=== PATIENT | female | born 1940 | race Caucasian/White ===

== ENCOUNTER 2022-04-19 11:18 | Day surgery (SDC) | payer MEDICARE, BC, SELFPAY ==
--- NOTE | 2022-04-19 11:47 | SUR.PREOP ---
Patient provided home covid negative results to RN.
[2022-04-19] MEDS: TETRACAINE 0.5% OPHTH 1 DROP EYE-RIGHT (12:04)
[2022-04-19 12:07] VITALS: BMI 28.1
[2022-04-19] MEDS: KETOROLAC OPHTH 0.5% 1 DROP EYE-RIGHT ×3 (12:10→12:29)
[2022-04-19 12:11] VITALS: BP 131/61; PULSE 60; RESP 16; TEMP 37.2; O2SAT 97
[2022-04-19] MEDS: SODIUM CHLORIDE 0.9 % (FLUSH) 10 ML SYRINGE IVF (12:21)
[2022-04-19] MEDS: BRIMONIDINE TARTRATE 0.2% OPHTH 1 DROP EYE-RIGHT (12:43)
--- NOTE | 2022-04-19 13:18 | W.ANESCHARGE ---
Anesthesia Charges Start Date/Time Anesthesia Start Date: 04/19/22 Anesthesia Start Time: 13:23 Stop Date/Time Anesthesia Stop Date: 04/19/22 Anesthesia Stop Time: 13:50 Summary Emergency: No Extremes of Age: Over 70-CPT 81015
--- NOTE | 2022-04-19 13:24 | W.ANESCHARGE ---
Anesthesia Charges Start Date/Time Anesthesia Start Date: 04/19/22 Anesthesia Start Time: 13:23 Stop Date/Time Anesthesia Stop Date: 04/19/22 Anesthesia Stop Time: 13:50 Summary Emergency: No Extremes of Age: Over 70-CPT 95919
[2022-04-19] MEDS: TETRACAINE 0.5% OPHTH 2 DROP EYE-RIGHT (13:26)
[2022-04-19] MEDS: BALANCED SALT IRRIG SOLN 15 ML EYE-RIGHT (13:30)
--- NOTE | 2022-04-19 13:46 | PM.PROC ---
Procedure Note Date Seen: 04/19/22 Date of procedure: 04/19/22 Will [facility] bill your pro fee for this procedure?: No Procedure: NAME OF PROCEDURE Darek phacoemulsification, right eye, with posterior chamber lens implant.complex PREOPERATIVE DIAGNOSIS Nuclear sclerotic cortical combined cataract, right eye. miosis POSTOPERATIVE DIAGNOSIS Nuclear sclerotic cortical combined cataract, right eye. miosis INDICATIONS FOR PROCEDURE The patient has noted that his vision in the right eye is failing. Severity 7 next/10. Unable to correct with glasses/contact lenses; has disabling night glare when driving, difficulty reading. Because of this, the patient elected to proceed with surgical repair. I have explained the risks, benefits, alternative treatments to the patient including possible loss of the eye under correction, over correction, need for more surgery. The patient understands, accepts, and elects to proceed with surgical repair. PROCEDURE The right eye was dilated with a combination 1% Mydriacyl, 2.5% phenylephrine with topical Ocufen and Vigamox applied to the corneal surface. The patient was brought to the main operating room where under IV sedation, after pausing to identify the correct patient, correct intraoperative lens, power . The right eye was prepped and draped in usual sterile fashion for intraocular surgery. A lid speculum was placed and a paracentesis created at 12 o'clock. The chamber was filled with local, OVD and entered temporally with a keratome. A malyugan ring ws placed due to a 3.0 mmm pupill.A continuous tear capsulotomy was performed. The nucleus was hydrodissected and emulsified with local anesthetic and emulsified in a chop technique in the capsular bag. Residual cortex was cleaned. The capsule was clear. At this point, diBOO 24.5 diopter posterior chamber lens implant was injected into the capsular bag and was well centered. The ring was removed Residual OVD was cleaned from behind the implant from the capsular bag. The incision hydrated and noted to be leak free. Topical Alphagan, pilocarpine, and Vigamox were applied to the corneal surface and the patient returned to recovery in good condition having tolerated the procedure well. CONDITION ON DISCHARGE Satisfactory. Surgeon: Major Kyle MD
[2022-04-19 13:50] VITALS: BP 122/60; PULSE 56; RESP 16; TEMP 36.7; O2SAT 94
== END 2022-04-19 14:16 | disposition home or self-care (01) ==
PROVIDERS: PCP Family Medicine; Visit Provider Ophthalmology
PROC: (CPT 66982; principal; 2022-04-19 13:00)
DX: H25.811 Combined forms of age-related cataract, right eye (principal); H57.03 Miosis
CPT/HCPCS: 66982; 00142; 99100; A9270; J2250; J2405; J3010; S0020; V2632

== ENCOUNTER 2022-07-24 08:49 | Outpatient (CLI) | payer MEDICARE, BC, SELFPAY ==
--- NOTE | 2022-07-24 09:00 | CRLHL7_ITS ---
For Patients: As a result of the 21st Century Cures Act, medical imaging exams and procedure reports are released immediately into your electronic medical record. You may view this report before your referring provider. If you have questions, please contact your health care provider. Indication: RETROPERITONEAL LYMPHADENOPATHY Technique: Postcontrast CT chest, abdomen and pelvis. 76 cc Isovue 370 intravenous contrast. Please note that all CT scans at this facility use dose modulation, iterative reconstruction, and/or weight-based dosing when appropriate to reduce radiation dose to as low as reasonably achievable. Comparison: None, no priors at [facility] Findings: In the chest, biapical pleural parenchymal scarring noted. Nodule within the periphery of the right lung noted laterally measuring 3.7 millimeters, 3/50. Linear scarring within the right middle lobe. Thoracic inlet unremarkable. No mediastinal, hilar or axillary adenopathy. Chronic appearing reticulonodular densities laterally within the right lower lobe. No pleural effusion. Small nodular density within the medial right lower lobe measuring 3.4 millimeters, 3/72. Additional small nodular density within the left lower lobe at the CPA measuring 3 millimeters, 3/81. Small Bochdalek`s hernia on the left incidentally noted. [place] nodular density left upper lobe posteriorly measuring 3.7 millimeters, 3/48. Partially calcified grouping of nodules within the left lower lobe superior segment measuring up to 4.6 millimeters, 3/46. Mild dependent areas of scarring. No pneumothorax or pulmonary edema. No infiltrate. Rightward curvature of the lumbar spine. Incidental bone island within T9. In the abdomen, there is a sub cm cyst within the dome of the liver. Lobular contour of the liver noted. Gallbladder unremarkable. No calcified stones or biliary obstruction. Spleen within normal limits. Normal adrenal glands. No hydronephrosis or solid renal mass. Pancreas is diminutive. Incidental duodenal diverticulum. Extensive calcifications within the aorta. No aneurysm. No enlarged lymph nodes in the retroperitoneum or mesenteric fat. In the pelvis, postoperative changes of partial colectomy. Increased stool distally. No mechanical bowel obstruction or inflammatory change. The bladder is incompletely distended. No pelvic soft tissue mass. No pelvic or inguinal adenopathy. Severe degenerative disc disease on the left at L4-5 and on the right at L2-3. Impression: No enlarged lymph nodes within the chest, abdomen or pelvis. Small bilateral pulmonary nodules measuring up to 4.6 millimeters. Postop changes distal colon. Increased stool in the distal colon compatible with constipation. No bowel obstruction or inflammatory change. Please note that all CT scans at this facility use dose modulation, iterative reconstruction, and/or weight-based dosing when appropriate to reduce radiation dose to as low as reasonably achievable. Dictated by Chris Saldana MD @ 07/24/2022 12:58:06 PM (Electronically Signed)
[2022-07-24 09:26] LABS: Creatinine* 0.8 mg/dL (0.5-1.5); Estimated Glomerular Filt Rate 74 ml/min
== END 2022-07-24 08:50 | disposition home or self-care (01) ==
PROVIDERS: PCP Family Medicine; Visit Provider Nurse Practitioner Family
DX: R59.0 Localized enlarged lymph nodes (principal); R91.8 Other nonspecific abnormal finding of lung field
CPT/HCPCS: 36415; 71260; 74177; 82565; Q9967

== ENCOUNTER 2022-08-10 14:46 | Outpatient (RCR) | payer MEDICARE, BC, SELFPAY | END 2023-02-06 23:59 | disposition home or self-care (01) | LOC: CCIC 14:46 | PROVIDERS: PCP Family Medicine; Visit Provider Internal Medicine Hematology & Oncology | DX: R59.1 Generalized enlarged lymph nodes (principal); K75.4 Autoimmune hepatitis; K52.839 Microscopic colitis, unspecified; K29.40 Chronic atrophic gastritis without bleeding | CPT/HCPCS: 99212; 99213 ==